=== PATIENT | female | born 1965 | race Caucasian/White ===

== ENCOUNTER 2025-05-16 12:22 | Emergency (ER) | payer BC ==
[~2025-05-16] VITALS: Ht 162.6 cm; Wt 68.1 kg
--- NOTE | 2025-05-16 12:51 | ELECTROCARDIOGRAPH REPORT ---
[facility] Test Date: 2025-05-16 Test Time: 12:49:24 Pat Name: SHAVONNE ELIZALDE Department: [facility] Patient ID: [facility]-[id number] Room: Gender: F Business Coordinator: : 1965 Requested By: ROULA PRIETO Order Number: [id number] Reading MD: Measurements Intervals [place] Rate: 80 P: 50 W[place]: 150 QRS: -26 QRSD: 90 T: 209 QT: 355 QTc: 410 Interpretive Statements Sinus rhythm Borderline left axis deviation Low voltage, precordial leads Nonspecific T abnormalities, diffuse leads Please click the below link to view image of tracing.
--- NOTE | 2025-05-16 13:14 | RADIOLOGY REPORT ---
CLINICAL INFORMATION: Chest pain. TECHNIQUE: Single AP portable chest radiograph was obtained. COMPARISON: None FINDINGS: Lungs: Clear. Cardiac: Heart size is within normal limits. Pulmonary vasculature: Unremarkable. Mediastinum/julianne: Unremarkable. Bones: No acute osseous abnormality identified. Other: No other significant findings. IMPRESSION: No evidence of acute disease in the chest.
--- NOTE | 2025-05-16 13:16 | Physician Documentation ---
History of Present Illness ~ Chief Complaint: Syncope Stated Complaint: FALL 05/15 Time Seen by MD: 14:38 HPI This is a 60-year-old female who presents after a syncopal episode last night, patient reports that she did hit her head after losing consciousness. Patient reports she is not on blood thinners. She tells me that she was taking a shower, when she started to feel dizzy and her vision got fuzzy, and then she fell out of the shower and lost consciousness. She did hit her head on the ground and has a bump on the back of her head. Tells me she feels dehydrated, did not really eat or drink today. She denies any fevers, vomiting, diarrhea, or other infectious symptoms. She denies any chest pain or shortness of breath. No palpitations. No other acute concerns currently Medication Reconciliation Allergies: Coded Allergies: No Known Allergies (Unverified , 05/16/25) Review of Systems ROS As stated above in the HPI, otherwise all systems are reviewed and negative. Neurological: Reports: headache, fainting Physical Exam Vital Signs: Temperature: 97.7, Source: Temporal, Heart Rate: 75, Respiratory Rate: 16, BP: 84/46, Pulse Oximetry: 96, Weight: 68.100 Oxygen Flow Rate: 0 Physical Exam General: This is a pleasant and overall well-appearing middle-aged woman sitting calmly in bed HEENT: Small hematoma to the posterior right scalp, with no laceration or bleeding, oropharynx is dry appearing Heart: Regular rate and rhythm, no loud murmur, normal-appearing peripheral perfusion Lungs: Clear breath sounds bilateral, normal work of breathing, normal oxygen saturation on room air Abdomen: Soft, nondistended, nontender all quadrants Extremities: Warm and well-perfused, no edema or posterior calf tenderness. Well healed scars to both anterior knees Neuro: Alert and oriented Psychiatric: Calm and cooperative with exam Progress Results/Orders Results/Orders Orders - ROULA PRIETO MD Chest,Single View (05/16/25 12:45) Monitor (05/16/25 12:45) Saline Lock (05/16/25 12:45) Oxygen (05/16/25 12:45) Ct Head (05/16/25 14:53) Completed Orders - ROULA PRIETO MD Chest,Single View (05/16/25 12:45) Cbc/Diff (05/16/25 12:45) BMP (05/16/25 12:45) PBNP (05/16/25 12:45) Electrocardiogram (05/16/25 12:45) Hs Troponin I W Calculations (05/16/25 12:45) Ct Head (05/16/25 14:53) Potassium Cl Sr Tablet (K-Dur Tablet) (05/16/25 14:53) Normal Saline 1000ml (0.9% Sodium Chlori (05/16/25 14:55) Medications Received in ER Medications (Trade) Dose Ordered Sig/Hermes Route PRN Reason Start Time Stop Time Status Last Admin Dose Admin (K-DUR tablet) 40 meq ONCE STAT PO 05/16/25 14:53 05/16/25 14:56 DC 05/16/25 15:09 40 MEQ (0.9% sodium chloride (NS) 1000ml IV soln) 1,000 ml ONCE ONCE IVB 05/16/25 14:55 05/16/25 15:00 DC 05/16/25 15:08 1,000 ML Vital Signs 05/16/25 05/16/25 05/16/25 12:39 14:21 14:25 Temp 97.7 97.7 Pulse 75 67 Resp 16 19 B/P (MAP) 84/46 101/61 (74) Pulse Ox 96 98 O2 Flow Rate 0 0 Laboratory Tests Test 05/16/25 13:01 White Blood Count 6.0 Red Blood Count 4.41 Hemoglobin 14.3 Hematocrit 40.7 Mean Corpuscular Volume 92.3 Mean Corpuscular Hemoglobin 32.4 H Mean Corpuscular Hemoglobin Concent 35.0 Red Cell Distribution Width 12.7 Platelet Count 245 Mean Platelet Volume 8.8 Neutrophils (%) (Auto) 54.8 Lymphocytes (%) (Auto) 35.7 Monocytes (%) (Auto) 8.6 Eosinophils (%) (Auto) 0.3 Basophils (%) (Auto) 0.6 Neutrophils # (Auto) 3.3 Lymphocytes # (Auto) 2.2 Monocytes # (Auto) 0.5 Eosinophils # (Auto) 0.0 Basophils # (Auto) 0.0 CBC Comment Sodium Level 138 Potassium Level 3.1 L Chloride Level 102 Carbon Dioxide Level 28.3 Anion Gap 8 Blood Urea Nitrogen 16 Creatinine 1.08 H Estimated GFR/1.73 m2 52 BUN/Creatinine Ratio 14.8 Glucose Level 114 H Calcium Level 9.0 Troponin I High Sensitivity 7 Pro-B-Type Natriuretic Peptide 42 Albumin 4.1 Chemistry Comments EKG/XRAY/CT/US/VASC/MRI EKG : Additional Comment I personally interpreted the EKG and this shows: Sinus rhythm, rate 80, QTC 410, nonspecific generalized T-wave abnormalities Chest X-Ray : Additional Comments I personally interpreted the x-ray, and it shows: No focal consolidation, pulmonary edema, or pneumothorax CT : Impression I personally interpreted the CT scan, and this shows no intracranial hemorrhage Medical Decision Making Findings MSE performed in triage and patient returned to ED lobby by nursing staff to await available ED room Differential Dx:Considerations: Include: dehydration, dysrhythmia, electrolyte disorder, myocardial infarction, pulmonary embolus, vasovagal Additional Information The patient presents with a syncopal episode in the shower. Per her history and exam, I suspect that this was a vasovagal episode related to dehydration and being in the warm shower. She did hit her head, but head CT shows no acute hemorrhage. Labs show mild dehydration and hypokalemia, and she was given oral potassium and IV fluids. No other dangerous findings on her workup today. After treatment she felt much improved and was able to ambulate without dizziness. Overall I suspect that this was a vasovagal episode. No evidence of a more dangerous process. She will be discharged with home care instructions and return precautions. Departure Time of Disposition: 16:24 Disposition: 01 HOME / SELF CARE / HOMELESS Impression: Primary Impression: Syncope Additional Impressions: Closed head injury Dehydration Condition: Improved Discharge Instructions: Syncope, Adult, Dehydration, Adult Referrals: NO PRIMARY CARE PROVIDER (PCP) Education Educated: Patient Educated regarding: diagnosis, treatment, need for follow up Signature Scribe Signature: na Attestation: SAMANTHA Wasserman May 16, 2025 13:16 ROULA PRIETO MD May 16, 2025 15:11
[2025-05-16 13:22] LABS: MEAN PLATELET VOLUME 8.8 FL (7.4-10.4); RED CELL DISTRIBUTION WIDTH 12.7 % (11.5-14.5)
[2025-05-16 13:33] LABS: CREATININE 1.08 MG/DL (0.40-0.90); PRO BRAIN NATRIURETIC PEPTIDE 42 PG/ML (0-125); TOTAL CARBON DIOXIDE 28.3 MMOL/L (24-32); eCRCL 49 ML/MIN; eGFR 52 ML/MIN
[2025-05-16] MEDS: normal saline 1000ML IV soln IVB ONE (15:08)
[2025-05-16] MEDS: potassium Cl 20 mEq SR tablet PO STA (15:09)
--- NOTE | 2025-05-16 15:16 | RADIOLOGY REPORT ---
EXAM: CT CT HEAD INDICATION: Syncope, head injury, posterior contusion TECHNIQUE: CT images of the head were obtained without administration of IV contrast. CT scans at [facility] facility use dose modulation, iterative reconstruction, and/or weight based dosing when appropriate to reduce radiation dose to as low as reasonably achievable. COMPARISON: None available at the time of dictation. FINDINGS: PARENCHYMA: No acute hemorrhage. There is no mass effect, midline shift, or herniation. There is pres ervation of the waters white differentiation. Mild scattered hypoattenuation along the periventricular, centrum semiovale, and deep white matter tracts, which are nonspecific however statistically most li felipe represent chronic microvascular ischemic change. VENTRICLES: No hydrocephalus. EXTRA-AXIAL SPACES: No extra-axial fluid collections. Left middle cranial fossa arachnoid cyst measur ing 3.4 cm OTHER: The bony structures are intact. Visualized portions of the paranasal sinuses and mastoid air cells are clear. IMPRESSION: 1. No CT evidence of an acute intracranial abnormality.
[2025-05-16 16:38] VITALS: BP 126/71; PULSE 72; RESP 16; TEMP 97.7; O2SAT 97
== END 2025-05-16 16:39 | disposition home or self-care (01) ==
LOC: ER 12:24
DX: S00.03XA Contusion of scalp, initial encounter (principal); E86.0 Dehydration; R06.02 Shortness of breath; W22.8XXA Striking against or struck by other objects, initial encounter; Y93.89 Activity, other specified; Y92.89 Other specified places as the place of occurrence of the external cause; Y99.8 Other external cause status
CPT/HCPCS: 36415; 70450; 71045; 80048; 83880; 84484; 85025; 93005; 96360; 99285; J7030